=== PATIENT | male | born 1965 | race Caucasian/White ===

== ENCOUNTER 2016-06-03 19:29 | Inpatient (IN) | payer BC, OTHER ==
[2016-06-03] MEDS ORDERED: SODIUM CHLORIDE 0.9% 1,000 ML IV STA ×2 (20:06→22:39)
--- NOTE | 2016-06-03 20:08 | ED ---
General Adult HPI - General Source: patient, RN notes reviewed Mode of arrival: ambulatory Limitations: no limitations <Andres Cortés - Last Filed: 06/03/16 22:27> <Catarino Damian - Last Filed: 06/04/16 10:58> - General Chief complaint: Abdominal Pain Stated complaint: lower abdominal pain Time Seen by Provider: 06/03/16 20:01 - History of Present Illness Initial comments: Patient 50-year-old male who presents emergency room today with a chief complaint of right-sided abdominal pain that started yesterday. He describes a sharp constant pain located in the right lower quadrant. States worse with certain movements at times. Currently rates pain 9/10. Denies any other associated symptoms or complaints. States never had similar pain in the past. Patient denies any recent fever, chills, shortness of breath, chest pain, back pain, nausea or vomiting, numbness or tingling, dysuria or hematuria, constipation or diarrhea, headaches or visual changes, or any other complaints. (Andres Cortés) - Related Data Home Medications Medication Instructions Recorded Confirmed traMADol HCL [Ultram] 50 mg PO Q4HR PRN 06/03/16 06/04/16 Cyclobenzaprine [Flexeril] 10 mg PO TID PRN 06/04/16 06/04/16 Allergies Allergy/AdvReac Type Severity Reaction Status Date / Time No Known Allergies Allergy Verified 06/03/16 20:23 Review of Systems ROS Other: All systems not noted in ROS Statement are negative. <Andres Cortés - Last Filed: 06/03/16 22:27> ROS Other: All systems not noted in ROS Statement are negative. <Catarino Damian - Last Filed: 06/04/16 10:58> ROS Statement: Those systems with pertinent positive or pertinent negative responses have been documented in the HPI. Past Medical History Past Medical History: Cancer Additional Past Medical History / Comment(s): Skin cancer History of Any Multi-Drug Resistant Organisms: None Reported Past Surgical History: Tonsillectomy Additional Past Surgical History / Comment(s): Skin cancer removal left neck, wide excision Past Psychological History: No Psychological Hx Reported Smoking Status: Never smoker Past Alcohol Use History: None Reported Past Drug Use History: None Reported <Andres Cortés - Last Filed: 06/03/16 22:27> General Exam Limitations: no limitations <Arthur Cortésony - Last Filed: 06/03/16 22:27> <Catarino Damian - Last Filed: 06/04/16 10:58> - General Exam Comments Initial Comments: General: The patient is awake and alert, in no distress, and does not appear acutely ill. Eye: Pupils are equal, round and reactive to light, extra-ocular movements are intact. No nystagmus. There is normal conjunctiva bilaterally. No signs of icterus. Ears, nose, mouth and throat: There are moist mucous membranes and no oral lesions. Neck: The neck is supple, there is no tenderness or JVD. Cardiovascular: There is a regular rate and rhythm. No murmur, rub or gallop is appreciated. Respiratory: Lungs are clear to auscultation, respirations are non-labored, breath sounds are equal. No wheezes, stridor, rales, or rhonchi. Gastrointestinal: Normal appearance abdomen. Normal bowel sounds. Abdomen soft on palpation. Patient does have tenderness right lower quadrant. No rebound tenderness. No guarding. No CVA tenderness. Musculoskeletal: Normal ROM, no tenderness. Strength 5/5. Sensation intact. Pulses equal bilaterally 2+. Neurological: A&O x 3. CN II-XII intact, There are no obvious motor or sensory deficits. Coordination appears grossly intact. Speech is normal. Skin: Skin is warm and dry and no rashes or lesions are noted. Psychiatric: Cooperative, appropriate mood & affect, normal judgment. (Andres Cortés) Course <Andres Cortés - Last Filed: 06/03/16 22:27> <Catarino Damian - Last Filed: 06/04/16 10:58> Vital Signs 06/03/16 06/03/16 06/03/16 19:56 22:27 23:18 Temperature 98.8 F 98.0 F 98.0 F Pulse Rate 85 74 67 Respiratory 18 18 18 Rate Blood Pressure 134/85 129/79 105/58 O2 Sat by Pulse 97 96 100 Oximetry - Reevaluation(s) Reevaluation #1: 06/03/16 20:08 Is examined at this time does have tenderness right lower quadrant. Labs are currently pending. Patient declined pain medicine currently at this time. ( Andres Cortés) Medical Decision Making - Lab Data Result diagrams: 06/03/16 20:25 06/03/16 20:25 <Andres Cortés - Last Filed: 06/03/16 22:27> - Lab Data Result diagrams: 06/04/16 07:56 06/04/16 07:56 <Catarino Damian - Last Filed: 06/04/16 10:58> - Medical Decision Making Patient reexamined at this time shows no signs of distress. Patient's CAT scan reviewed and does show evidence of appendicitis. Also nodules seen bilateral lower lobes. Results were discussed with the patient. Case discussed with attending physician Dr. Damian who did discuss case with on-call surgeon who will admit the patient. Recommending starting Zosyn. Patient aware the plan states understanding. (Andres Cortés) I saw this patient in conjunction with the physician photography assistant. I performed independent history and physical exam. Agree with case management. (Catarino Damian) - Lab Data Lab Results 06/03/16 06/03/16 06/03/16 Range/Units 20:25 20:25 20:25 WBC 7.4 (3.8-10.6) k/uL RBC 4.91 (4.30-5.90) m/uL Hgb 15.3 (13.0-17.5) gm/dL Hct 44.4 (39.0-53.0) % MCV 90.5 (80.0-100.0) fL MCH 31.2 (25.0-35.0) pg MCHC 34.4 (31.0-37.0) g/dL RDW 12.6 (11.5-15.5) % Plt Count 181 (150-450) k/uL Neutrophils % 65 % Lymphocytes % 26 % Monocytes % 5 % Eosinophils % 1 % Basophils % 1 % Neutrophils # 4.8 (1.3-7.7) k/uL Lymphocytes # 1.9 (1.0-4.8) k/uL Monocytes # 0.4 (0-1.0) k/uL Eosinophils # 0.1 (0-0.7) k/uL Basophils # 0.0 (0-0.2) k/uL Sodium 142 (137-145) mmol/L Potassium 4.1 (3.5-5.1) mmol/L Chloride 105 (98-107) mmol/L Carbon Dioxide 24 (22-30) mmol/L Anion Gap 13 mmol/L BUN 16 (9-20) mg/dL Creatinine 0.92 (0.66-1.25) mg/dL Est GFR (MDRD) Af Amer >60 (>60 ml/min/1.73 sqM) Est GFR (MDRD) Non-Af >60 (>60 ml/min/1.73 sqM) Glucose 97 (74-99) mg/dL Plasma Lactic Acid Darien 1.1 (0.7-2.0) mmol/L Calcium 9.7 (8.4-10.2) mg/dL Total Bilirubin 0.7 (0.2-1.3) mg/dL AST 28 (17-59) U/L ALT 48 (21-72) U/L Alkaline Phosphatase 65 (38-126) U/L Total Protein 7.5 (6.3-8.2) g/dL Albumin 4.5 (3.5-5.0) g/dL Amylase 30 (30-110) U/L Lipase 86 (23-300) U/L Urine Color Urine Appearance (Clear) Urine pH (5.0-8.0) Ur Specific Onyx (1.001-1.035) Urine Protein (Negative) Urine Glucose (UA) (Negative) Urine Ketones (Negative) Urine Blood (Negative) Urine Nitrate (Negative) Urine Bilirubin (Negative) Urine Urobilinogen (<2.0) mg/dL Ur Leukocyte Esterase (Negative) 06/03/16 Range/Units 20:25 WBC (3.8-10.6) k/uL RBC (4.30-5.90) m/uL Hgb (13.0-17.5) gm/dL Hct (39.0-53.0) % MCV (80.0-100.0) fL MCH (25.0-35.0) pg MCHC (31.0-37.0) g/dL RDW (11.5-15.5) % Plt Count (150-450) k/uL Neutrophils % % Lymphocytes % % Monocytes % % Eosinophils % % Basophils % % Neutrophils # (1.3-7.7) k/uL Lymphocytes # (1.0-4.8) k/uL Monocytes # (0-1.0) k/uL Eosinophils # (0-0.7) k/uL Basophils # (0-0.2) k/uL Sodium (137-145) mmol/L Potassium (3.5-5.1) mmol/L Chloride (98-107) mmol/L Carbon Dioxide (22-30) mmol/L Anion Gap mmol/L BUN (9-20) mg/dL Creatinine (0.66-1.25) mg/dL Est GFR (MDRD) Af Amer (>60 ml/min/1.73 sqM) Est GFR (MDRD) Non-Af (>60 ml/min/1.73 sqM) Glucose (74-99) mg/dL Plasma Lactic Acid Darien (0.7-2.0) mmol/L Calcium (8.4-10.2) mg/dL Total Bilirubin (0.2-1.3) mg/dL AST (17-59) U/L ALT (21-72) U/L Alkaline Phosphatase (38-126) U/L Total Protein (6.3-8.2) g/dL Albumin (3.5-5.0) g/dL Amylase (30-110) U/L Lipase (23-300) U/L Urine Color Yellow Urine Appearance Clear (Clear) Urine pH 6.0 (5.0-8.0) Ur Specific Onyx 1.020 (1.001-1.035) Urine Protein Negative (Negative) Urine Glucose (UA) Negative (Negative) Urine Ketones Negative (Negative) Urine Blood Negative (Negative) Urine Nitrate Negative (Negative) Urine Bilirubin Negative (Negative) Urine Urobilinogen 2.0 (<2.0) mg/dL Ur Leukocyte Esterase Negative (Negative) Disposition Time of Disposition: 22:29 <Andres Cortés - Last Filed: 06/03/16 22:27> <Catarino Damian - Last Filed: 06/04/16 10:58> Clinical Impression: Acute appendicitis, Pulmonary nodule Disposition: ADMITTED IP TO THIS [facility] Condition: Good
[2016-06-03 20:38] LABS: Appearance,Urine Clear (Clear); Bilirubin,Urine Negative (Negative); Glucose,Urine (UA) Negative (Negative); Ketones,Urine Negative (Negative); Leukocyte Esterase,Urine Negative (Negative); Nitrite,Urine Negative (Negative); Protein,Urine Negative (Negative); UA Billing (MACRO vs. MICRO) CHEM
[2016-06-03 20:39] LABS: Basophils % (A) 1 %; CH 32.1; CHCM 35.6; Eosinophils # (A) 0.1 k/uL (0-0.7); Eosinophils % (A) 1 %; HCT 44.4 % (39.0-53.0); HDW 2.66; HGB 15.3 gm/dL (13.0-17.5); Luc # (Auto) 0.11; Luc % (Auto) 2; Lymphocytes # (A) 1.9 k/uL (1.0-4.8); Lymphocytes % (A) 26 %; MCH 31.2 pg (25.0-35.0); MCHC 34.4 g/dL (31.0-37.0); MCV 90.5 fL (80.0-100.0); Mean Platelet Volume 7.8; Monocytes # (A) 0.4 k/uL (0-1.0); Monocytes % (A) 5 %; Neutrophils # (A) 4.8 k/uL (1.3-7.7); Neutrophils % (A) 65 %; RBC 4.91 m/uL (4.30-5.90); RDW 12.6 % (11.5-15.5); WBC 7.4 k/uL (3.8-10.6); WBC (Perox) 7.44
[2016-06-03 20:49] LABS: ALT 48 U/L (21-72); AST 28 U/L (17-59); Alkaline Phosphatase 65 U/L (38-126); Amylase 30 U/L (30-110); Anion Gap 13 mmol/L; Blood Urea Nitrogen 16 mg/dL (9-20); Calcium 9.7 mg/dL (8.4-10.2); Carbon Dioxide 24 mmol/L (22-30); Chloride 105 mmol/L (98-107); Glucose 97 mg/dL (74-99); Non-African American GFR(MDRD) >60 (>60 ml/min/1.73 sqM); Potassium 4.1 mmol/L (3.5-5.1); Sodium 142 mmol/L (137-145); Total Bilirubin 0.7 mg/dL (0.2-1.3); Total Protein 7.5 g/dL (6.3-8.2)
--- NOTE | 2016-06-03 21:04 | XR ---
EXAMINATION TYPE: XR KUB DATE OF EXAM: 06/03/2016 8:52 PM COMPARISON: NONE HISTORY: Abdominal pain TECHNIQUE: 2 views FINDINGS: There is no sign of intestinal obstruction or pneumoperitoneum. Fecal pattern is normal. Th ere is slight blunting of costophrenic angles. There are no pathologic calcifications over the kidney s. There is no sign of a mass. IMPRESSION: Nonacute abdomen. Minimal pleural reaction at the lateral lung bases.
[2016-06-03] MEDS ORDERED: RX INFO: IV CONTRAST WAS GIVEN 1 EACH MISC MISCELLANE PRN (21:22)
--- NOTE | 2016-06-03 22:03 | CT ---
EXAMINATION TYPE: CT abdomen pelvis w con DATE OF EXAM: 06/03/2016 9:49 PM COMPARISON: 01/22/2014 HISTORY: Pt states of RLQ pain. CT DLP: 1245.9 mGycm Automated exposure control for dose reduction was used. TECHNIQUE: Helical acquisition of images was performed from the lung bases through the pelvis. CONTRAST: Performed without Oral Contrast and with IV Contrast, patient injected with 100 mL of Omnipaque 300. FINDINGS: Images through both lower lobes show bilateral pulmonary nodular densities. The largest measures 2 cm in the right lower lobe. There is no calcification. There is no pleural effusion. Heart appears enla rged. There is no pericardial effusion. There is a 1 cm cyst in the left lobe of the liver. Liver shows no evidence of a solid mass. Spleen a ppears normal. There is no pancreatic mass. Bile ducts are not dilated. There is no adrenal mass. The re is a 1.5 cm cortical cyst on the anterior left kidney. There is no hydronephrosis. There is no ret roperitoneal adenopathy. There is no ascites. There are numerous diverticula in the sigmoid colon. Ap pendix is slightly thickened and measures 12 mm. There is no evidence of a pelvic mass. Bladder diste nds smoothly. The bony structures are intact. IMPRESSION: APPENDIX IS SLIGHTLY THICKENED AND APPEARS INCREASED COMPARED TO OLD CT SCAN. THIS IS SUSPICIOUS FOR APPENDICITIS. THERE ARE NEW BILATERAL LOWER LOBE PULMONARY NODULAR DENSITIES. THE POSSIBILITY OF PULMONARY METASTA TIC DISEASE SHOULD BE CONSIDERED IN THIS PATIENT WITH A HISTORY OF MELANOMA. THERE ARE 2 APPROXIMATE 1.5 CM NODULES IN THE LEFT LOWER LOBE AND A 2 CM NODULE IN THE RIGHT LOWER LOBE. .
[2016-06-03] MEDS ORDERED: NALOXONE 0.4 MG/ML 1 ML VIAL IV PRN (22:30)
[2016-06-03] MEDS ORDERED: HYDROmorphone 1 MG/ML 1 ML SYRINGE IV PRN (22:35)
[2016-06-03] MEDS ORDERED: SODIUM CHLORIDE 0.9% 1,000 ML IV ONE (22:35)
[2016-06-03] MEDS ORDERED: ONDANSETRON 4 MG/2 ML VIAL IVP PRN ×2 (22:35→22:39)
[2016-06-03 23:45] VITALS: BMI 29.8
[2016-06-04] MEDS: HEPARIN SODIUM,PORCINE 5,000 UNIT/ML 1 ML VIAL SQ SCH ×5 (00:17→23:52)
[2016-06-04] MEDS: AMPICILLIN-SULBACTAM 1.5 GM in SODIUM CHLORIDE 0.9% 50 ML IVPB SCH ×5 (00:51→23:50)
[2016-06-04 08:27] LABS: CH 31.9; CHCM 34.4; HCT 44.8 % (39.0-53.0); HDW 2.63; HGB 14.9 gm/dL (13.0-17.5); MCHC 33.3 g/dL (31.0-37.0); MCV 93.2 fL (80.0-100.0); Mean Platelet Volume 7.1; RDW 12.7 % (11.5-15.5); WBC 3.9 k/uL (3.8-10.6)
[2016-06-04 08:37] LABS: ALT 55 U/L (21-72); AST 25 U/L (17-59); Alkaline Phosphatase 68 U/L (38-126); Anion Gap 11 mmol/L; Blood Urea Nitrogen 15 mg/dL (9-20); Calcium 9.3 mg/dL (8.4-10.2); Carbon Dioxide 25 mmol/L (22-30); Chloride 106 mmol/L (98-107); Glucose 95 mg/dL (74-99); Non-African American GFR(MDRD) >60 (>60 ml/min/1.73 sqM); Potassium 4.2 mmol/L (3.5-5.1); Sodium 142 mmol/L (137-145); Total Bilirubin 1.1 mg/dL (0.2-1.3); Total Protein 7.1 g/dL (6.3-8.2)
[2016-06-04] MEDS ORDERED: IV FLUID CONTINUATION 1,000 ML IV ONE (08:45)
[2016-06-04] MEDS ORDERED: LACTATED RINGERS 1,000 ML IV ONE ×2 (08:45→12:54)
[2016-06-04] MEDS ORDERED: LIDOCAINE 1% 20 ML VIAL (10MG/ML) FOR IV START INTRADERMA ONE (08:46)
[2016-06-04] MEDS ORDERED: DEXAMETHASONE SOD PHOSPHATE 10 MG/ML 1 ML VIAL IV ONE (08:51)
[2016-06-04] MEDS ORDERED: BUPIVACAIN-EPI 0.25%-1:200,000 30 ML VIAL SQ ONE ×2 (10:03→10:26)
[2016-06-04] MEDS ORDERED: LIDOCAINE 1% INJ 10MG/ML (20 ML MDV) ONE (12:08)
[2016-06-04] MEDS ORDERED: NEOSTIGMINE 1 MG/ML 10 ML VIAL ONE (12:08)
[2016-06-04] MEDS ORDERED: HYDROmorphone (PF) 1 MG/ML ONE (12:08)
[2016-06-04] MEDS ORDERED: MIDAZOLAM 2 MG/2 ML VIAL ONE (12:08)
[2016-06-04] MEDS ORDERED: GLYCOPYRROLATE 0.2 MG/ML 2 ML VIAL ONE (12:08)
[2016-06-04] MEDS ORDERED: fentaNYL (PF) 50 MCG/ML 2 ML AMP ONE (12:08)
[2016-06-04] MEDS ORDERED: ROCURONIUM BROMIDE 10 MG/ML 10 ML VIAL IV ONE (12:08)
[2016-06-04] MEDS ORDERED: PROPOFOL 10 MG/ML 20 ML VIAL IV ONE (12:08)
[2016-06-04] MEDS ORDERED: SUCCINYLCHOLINE CHLORIDE 100 MG/5 ML SYR IV ONE (12:08)
--- NOTE | 2016-06-04 12:17 | P.GSHP ---
History of Present Illness H&P Date: 06/04/16 Chief Complaint: Right abdominal pain 50 years old male presents with right lower quadrant pain of 3 days duration. No fever, chills or diarrhea. No change in bowel habits. No nausea or vomiting. Past history of neck melanoma status post excision at [facility] in 2014. No blood in stool. - Review of Systems Comment: Constitutional: Denies fever, weight loss or loss of appetite HEENT: No difficulty in vision or hearing. Denies dysphagia. Cardiovascular:. Denies chest pain, palpitations, dizziness, shortness of breath. Respiratory: Recent upper respiratory tract infection with dry cough. Long- standing asthma well controlled with rescue inhalers. Gastrointestinal: No recent change in bowel habits, no abdominal pain, no nausea or vomiting. Denies reflux symptoms and no postprandial right upper quadrant pain. Genitourinary: No urinary incontinence, hematuria or dysuria Neurologic: No seizures, denies weakness in upper or lower extremities Musculoskeletal: Occasional left knee pain. Psychiatry: No history of depression, no suicidal ideation, no anxiety or psychosis Past Medical History Past Medical History: Cancer Additional Past Medical History / Comment(s): Skin cancer 01/2015 History of Any Multi-Drug Resistant Organisms: None Reported Past Surgical History: Tonsillectomy Additional Past Surgical History / Comment(s): Skin cancer removal left neck, wide excision, cyst removal 1982, from [facility] Past Psychological History: No Psychological Hx Reported Smoking Status: Never smoker Past Alcohol Use History: None Reported Past Drug Use History: None Reported - Past Family History Father Family Medical History: Chest Pain / Angina, Congestive Heart Failure (CHF), CVA /TIA Additional Family Medical History / Comment(s): Mother Family Medical History: Congestive Heart Failure (CHF), Diabetes Mellitus Additional Family Medical History / Comment(s): Medications and Allergies Home Medications Medication Instructions Recorded Confirmed Type traMADol HCL [Ultram] 50 mg PO Q4HR PRN 06/03/16 06/04/16 History Cyclobenzaprine [Flexeril] 10 mg PO TID PRN 06/04/16 06/04/16 History Allergies Allergy/AdvReac Type Severity Reaction Status Date / Time No Known Allergies Allergy Verified 06/03/16 20:23 Surgical - Exam Vital Signs Temp Pulse Resp BP Pulse Ox 98.8 F 85 18 134/85 97 06/03/16 19:56 06/03/16 19:56 06/03/16 19:56 06/03/16 19:56 06/03/16 19:56 General: Patient is alert and oriented to time, place and person and cooperative with exam. He is not in acute distress. HEENT: No pallor, no icterus, no thyroid enlargement, no cervical lymphadenopathy. Chest: Bilateral equal breath sounds present. No wheezes, no crackles. Cardiovascular: Regular rate and rhythm. Abdomen: RLQ localized tenderness. No diffuse peritonitis Integumentary: Bilateral lower extremity chronic venous dermatitis. No active ulcers or discharge. Neurologic: Cranial nerves II-XII intact. Strength upper and lower extremities 5/5. No focal neurologic deficits. Gait is normal. Psychiatric: No anxiety or psychosis. No suicidal thoughts. Results - Labs 06/04/16 07:56 06/04/16 07:56 Diabetes panel 06/04/16 Range/Units 07:56 Sodium 142 (137-145) mmol/L Potassium 4.2 (3.5-5.1) mmol/L Chloride 106 (98-107) mmol/L Carbon Dioxide 25 (22-30) mmol/L BUN 15 (9-20) mg/dL Creatinine 0.96 (0.66-1.25) mg/dL Glucose 95 (74-99) mg/dL Calcium 9.3 (8.4-10.2) mg/dL AST 25 (17-59) U/L ALT 55 (21-72) U/L Alkaline Phosphatase 68 (38-126) U/L Total Protein 7.1 (6.3-8.2) g/dL Albumin 4.3 (3.5-5.0) g/dL Calcium panel 06/04/16 Range/Units 07:56 Calcium 9.3 (8.4-10.2) mg/dL Albumin 4.3 (3.5-5.0) g/dL Pituitary panel 06/04/16 Range/Units 07:56 Sodium 142 (137-145) mmol/L Potassium 4.2 (3.5-5.1) mmol/L Chloride 106 (98-107) mmol/L Carbon Dioxide 25 (22-30) mmol/L BUN 15 (9-20) mg/dL Creatinine 0.96 (0.66-1.25) mg/dL Glucose 95 (74-99) mg/dL Calcium 9.3 (8.4-10.2) mg/dL Adrenal panel 06/04/16 Range/Units 07:56 Sodium 142 (137-145) mmol/L Potassium 4.2 (3.5-5.1) mmol/L Chloride 106 (98-107) mmol/L Carbon Dioxide 25 (22-30) mmol/L BUN 15 (9-20) mg/dL Creatinine 0.96 (0.66-1.25) mg/dL Glucose 95 (74-99) mg/dL Calcium 9.3 (8.4-10.2) mg/dL Total Bilirubin 1.1 (0.2-1.3) mg/dL AST 25 (17-59) U/L ALT 55 (21-72) U/L Alkaline Phosphatase 68 (38-126) U/L Total Protein 7.1 (6.3-8.2) g/dL Albumin 4.3 (3.5-5.0) g/dL - Imaging CT scan - abdomen: other (Computed tomography scan of the abdomen and pelvis was visualized. Dilated appendix and mild fat stranding suggestive of early appendicitis) Assessment and Plan (1) History of melanoma Status: Acute (2) Acute appendicitis Status: Acute (3) Pulmonary nodule Status: Acute Plan: 1. Acute appendicitis 2. Informed consent obtained from the patient after explaining the risks, benefits and potential complications and he elected to undergo laparoscopic appendectomy possible open. The risks, benefits and potential complications including bleeding and infection were explained and patient elected to undergo the procedure. 3. Unasyn 3 g IV piggyback every 6 hours 4. Heparin 5000 units subcu injection every 8 hours for DVT prophylaxis 5. Bilateral SCDs 6. Oncology consult regarding pulmonary nodules and prior history of melanoma
[2016-06-04] MEDS ORDERED: KETOROLAC 30 MG/ML 1 ML VIAL IVP ONE (13:59)
--- NOTE | 2016-06-04 15:13 | P.OP ---
Date of Procedure: 06/04/16 Preoperative Diagnosis: Acute appendicitis History of neck melanoma status post surgery Postoperative Diagnosis: Acute appendicitis Procedure(s) Performed: Laparoscopic appendectomy Implants: NA Anesthesia: GETA, local Surgeon: Jaylene Cuevas Estimated Blood Loss (ml): 25 Pathology: other Condition: other (ASA2) Disposition: PACU Indications for Procedure: 50 years old male presents with right lower quadrant pain of 3 day duration. Computed tomography scan suggestive of early appendicitis. Informed consent obtained and patient elected to undergo laparoscopic appendectomy possible open. The risks, benefits and potential competitions explained and patient returned with the surgery. Operative Findings: Acute appendicitis. Retrocecal location of the appendix. Bilateral indirect inguinal hernia left larger than right. Description of Procedure: The patient was brought to the operating room and placed in supine position with left arm tucked and a footboard was placed. General anesthesia with endotracheal intubation was performed as per anesthesia team. A Gonzalez catheter was inserted under sterile aseptic precautions. Chlorhexidine was used to prep the abdomen followed by application of sterile drapes. A timeout was performed to verify correct patient and correct procedure. Patient was confirmed to receive perioperative IV antibiotics, subcutaneous heparin for VTE prophylaxis and bilateral SCDs were placed. A 5 mm skin incision was made in the left anterior axillary line and a Veress needle was inserted into the peritoneal cavity and CO2 insufflated to a pressure of 15 mmHg. A 5 mm Optiview trocar was loaded on a 5 mm 30 laparoscope and peritoneal cavity was entered under direct vision. An additional 5 mm trocar was placed in the suprapubic location in midline and a 12 mm trocar in the supraumbilical location. Patient was placed in Trendelenburg with right side up. The appendix was identified. It was retrocecal in location. The ascending colon was mobilized along the white line of Toldt along the right colon. The appendix was grasped using a laparoscopic Abimael instrument. A suction irrigation device was used to gently dissecting appendix from the surrounding tissue. All the fibrinous exudates were removed. A window was made in the mesoappendix close to the cecal base using a [place] dissector. Laparoscopic Ligasure was used to divide the mesoappendix. No bleeding noted from the mesoappendiceal stump. The appendix was divided at its base, at the confluence of three tenia using Ethicon stapler 45 blue load. The staple line was intact without evidence of bleeding. The appendix was placed in an endocatch bag and was retrieved through the supraumbilical port site. All the trocar sites were examined and no evidence of bleeding. Excess fluid was suctioned out. The 12 mm trocar site was closed using three transfascial sutures of 0 Vicryl which were placed using a eVenues device. Local anesthetic was infiltrated along all the ports sites. The sponge, instrument and needle count were correct x2. CO2 gas was evacuated and trocars were removed. 4-0 Monocryl was used to close the skin incisions followed by Dermabond skin glue. Gonzalez catheter was discontinued. Patient tolerated the procedure well and was taken to post anesthesia care unit in stable condition.
[2016-06-04] MEDS: traMADol 50 MG TAB PO SCH ×2 (16:00→23:52)
[2016-06-04 22:41] VITALS: RESP 16
[2016-06-05] MEDS: AMPICILLIN-SULBACTAM 1.5 GM in SODIUM CHLORIDE 0.9% 50 ML IVPB SCH (06:00)
[2016-06-05] MEDS: HEPARIN SODIUM,PORCINE 5,000 UNIT/ML 1 ML VIAL SQ SCH (07:30)
[2016-06-05] MEDS: traMADol 50 MG TAB PO SCH (07:30)
[2016-06-05 07:55] VITALS: TEMP 97.8
[2016-06-05 08:12] VITALS: BP 105/55; PULSE 57
[2016-06-05 09:17] LABS: CH 31.9; CHCM 33.9; HCT 40.2 % (39.0-53.0); HDW 2.59; HGB 13.4 gm/dL (13.0-17.5); MCH 31.6 pg (25.0-35.0); MCHC 33.4 g/dL (31.0-37.0); MCV 94.6 fL (80.0-100.0); Mean Platelet Volume 7.1; RBC 4.25 m/uL (4.30-5.90); RDW 12.7 % (11.5-15.5); WBC 6.4 k/uL (3.8-10.6); WBC (Perox) 7.79
[2016-06-05 09:42] LABS: ALT 45 U/L (21-72); AST 21 U/L (17-59); Alkaline Phosphatase 53 U/L (38-126); Anion Gap 9 mmol/L; Blood Urea Nitrogen 17 mg/dL (9-20); Calcium 8.8 mg/dL (8.4-10.2); Carbon Dioxide 24 mmol/L (22-30); Chloride 106 mmol/L (98-107); Glucose 118 mg/dL (74-99); Non-African American GFR(MDRD) >60 (>60 ml/min/1.73 sqM); Potassium 4.2 mmol/L (3.5-5.1); Sodium 139 mmol/L (137-145); Total Bilirubin 0.8 mg/dL (0.2-1.3); Total Protein 6.4 g/dL (6.3-8.2)
[2016-06-05 10:27] LABS: Add Differential Manual Differential
[2016-06-05 10:32] LABS: Nucleated Red Blood Cells 0 /100 WBC (0-0); Total Cells Counted 200
[2016-06-05 10:35] LABS: RBC Morphology Normal
[2016-06-05] MEDS ORDERED: RX INFO: IV CONTRAST WAS GIVEN 1 EACH MISC MISCELLANE PRN (11:44)
--- NOTE | 2016-06-05 13:10 | CT ---
EXAMINATION TYPE: CT chest w con DATE OF EXAM: 06/05/2016 12:50 PM COMPARISON: Previous study dated 01/22/2014. HISTORY: Lung Nodule CT DLP: 410.1 mGycm Automated exposure control for dose reduction was used. CONTRAST: CT scan of the chest is performed with IV Contrast, patient injected with 100 mL of Omnipaque 300. FINDINGS: There is an 8 mm noncalcified nodule in the anterior segment of the right upper lobe best seen on image 15. There are multiple other nodules throughout both lungs. The largest on the right me asures 17 mm. The largest on the left measures 15 mm. There is atelectatic change present at both jen g bases. There is no significant axillary, mediastinal or hilar adenopathy. There is no pleural or pericardial fluid. Within the abdomen, there is fatty infiltration of the liver. Visualized upper abdominal structures a re otherwise normal. There is mild hypertrophic spondylosis within the spine. No destructive lesion is seen. IMPRESSION: 1. Multiple pulmonary nodules consistent with metastases. 2. Fatty infiltration of the liver. 3. Mild degenerative changes within the spine.
--- NOTE | 2016-06-05 13:44 | P.DS ---
Providers Date of admission: 06/03/16 22:39 Expected date of discharge: 06/05/16 Attending physician: Jaylene Rainey Consults: 06/04/16 12:18 Consult Physician Routine Consulting Provider: Flaquito Zamudio Consult Reason/Comments: H/o melanoma. Incidental lung nodules Do you want consulting provider notified?: Yes Primary care physician: Kwame Shields [facility] Course: 50-year-old male who presented on the day of admission to the emergency with a chief complaint of developing right-sided abdominal pain. He stated it started the day before. He described it as a sharp constant pain that was located in the right lower quadrant. He stated it seemed to get worse if with movement. Stated the pain was intense. Subsequently the patient was seen in the emergency room for the above-mentioned symptoms patient denied any fever chills diarrhea constipation or change in bowel habits in the emergency room patient's CAT scan of the abdomen pelvis showed evidence of appendicitis. Surgical consultation was obtained. Patient was started on IV Zosyn. Patient was taken to surgery on June 14 underwent a laparoscopic appendectomy for acute appendicitis. Patient's only significant past medical history is neck melanoma status post surgery. Patient did have a CAT scan of the chest recommended by Dr. Zamudio hematology oncology. CAT scan of the chest was performed with IV contrast showed multiple pulmonary nodules consistent with metastasis fatty infiltration of the liver hematology oncology indicated they would follow the patient up in the outpatient setting Impression discharge diagnosis Present on admission right upper quadrant pain likely due to acute appendicitis Status post lap appendectomy done on June 05 History of neck myeloma status post surgery Chest x-ray multiple pulmonary nodules consistent with metastasis The above dictated assessment and findings were discussed with Dr. rainey Impression and the plan of care have been dictated as directed. Mariah Carballo nurse practitioner acting as a scribe for dr rainey Patient Condition at Discharge: Good Plan - Discharge Summary Discharge Medication List traMADol HCL [Ultram] 50 mg PO Q4HR PRN 06/03/16 [History] Cyclobenzaprine [Flexeril] 10 mg PO TID PRN 06/04/16 [History] Follow up Appointment(s)/Referral(s): Flaquito Zamudio MD [STAFF PHYSICIAN] - 06/09/16 2:15 pm Jaylene Rainey MD [STAFF PHYSICIAN] [facility] - 1-2 days Patient Instructions/Handouts: Laparoscopic Appendectomy (DC) Activity/Diet/Wound Care/Special Instructions: OK to shower . No soaking bath. No heavy lifting more than 10 lbs for 6 weeks post surgery. No driving while taking narcotics for pain. May use ice packs for local pain relief Take Motrin 600 mg po TID after meals if pain is not controlled Use incentive spireometry 10 times an hour while awake Discharge Disposition: HOME SELF-CARE
--- NOTE | 2016-06-05 16:32 | P.CONS ---
History of Present Illness - Reason for Consult Consult date: 06/05/16 lung nodule, incidential finding, Hx melanoma Requesting physician: Jaylene Cuevas - Chief Complaint RLQ pain - History of Present Illness Mr. Hernandez is a pleasant male pt admitted for appendicitis and Surgical intervention. Incidentally on imaging a 2 cm RLL lung nodule was identified. Pt has a history of melanoma on his left cheek. He had this mole on his left cheek since at least [id number]. In late summer 2013 he noted change in its shape and size, it was itchy. Around the beginning of 12/07 he also developed a painless lump in the upper left neck, anterior and inferior to his left ear. He was seen by Dr. Jara and had an excisional biopsy of the mole and FNA of the lump on 12/26/13. The mole did not show any definite evidence of malignancy but, the FNA was positive for melanoma cells. CT neck/C/A/P was performed revealing a 1.6 x 1.4 x 1.2 cm enhancing mass in the left parotid, no other site of metastases noted. He was referred to the [facility] Dr. Berry and had a wide excision of the original lesion area, left parotid excision and left radical neck node dissection. A 2.2 cm intra parotid node was positive for melanoma with spindle cell features. No other tran involvement was noted. Based on N1 ( stage III) disease, adjuvant therapy was recommended. He had 3 treatments with interferon and stopped to due to intolerance (back pain) and did not follow up. Pt denies, fevers, sweats, unintentional wt. loss, dysphagia, heartburn, indigestion, chst pain, SOB, cough, hemoptysis, pleuritic pain, no changes in bowel or bladder habits, denies lymph node swellings, his RLQ had only been hurting for about 3 days, prior to this he felt in his normal state of health, he works, lives alone. He is not current on age related cancer screenings. Review of Systems All systems: negative Constitutional: Reports as per HPI Past Medical History Past Medical History: Cancer Additional Past Medical History / Comment(s): melanoma 01/2014 History of Any Multi-Drug Resistant Organisms: None Reported Past Surgical History: Tonsillectomy Additional Past Surgical History / Comment(s): Skin cancer removal left neck, wide excision, cyst removal 1982, from [facility] Past Psychological History: No Psychological Hx Reported Smoking Status: Never smoker Past Alcohol Use History: None Reported Past Drug Use History: None Reported - Past Family History Father Family Medical History: Chest Pain / Angina, Congestive Heart Failure (CHF), CVA /TIA Additional Family Medical History / Comment(s): Mother Family Medical History: Congestive Heart Failure (CHF), Diabetes Mellitus Additional Family Medical History / Comment(s): Medications and Allergies Home Medications Medication Instructions Recorded Confirmed Type traMADol HCL [Ultram] 50 mg PO Q4HR PRN 06/03/16 06/04/16 History Cyclobenzaprine [Flexeril] 10 mg PO TID PRN 06/04/16 06/04/16 History Allergies Allergy/AdvReac Type Severity Reaction Status Date / Time No Known Allergies Allergy Verified 06/03/16 20:23 Physical Exam Vitals: Vital Signs Temp Pulse Pulse Resp BP Pulse Ox 06/05/16 08:11 57 L 105/55 06/05/16 07:00 97.8 F 49 L 16 88/49 95 06/05/16 00:00 99 16 06/04/16 22:39 96.6 F L 99 16 127/87 94 L 06/04/16 16:00 97.6 F 85 14 93/52 95 06/04/16 15:00 98 F 79 14 115/64 93 L 06/04/16 14:31 76 18 125/62 94 L 06/04/16 14:15 73 18 122/61 99 06/04/16 14:00 77 20 132/68 100 06/04/16 13:40 98.2 F 89 24 121/75 95 Intake and Output 06/04/16 06/05/16 06/05/16 22:59 06:59 14:59 Intake Total 4050 1100 Output Total 230 Balance 4050 870 Intake: IV 1250 1000 Sodium Chloride 0.9% 1, 1250 1000 000 ml @ 125 mls/hr IV . Q8H STA Rx#:[id number] Intake, IV Titration 100 Amount Ampicillin-Sulbactam 1.5 100 gm In Sodium Chloride 0.9 % 50 ml @ 100 mls/hr IVPB Q6H FRANK Rx#:[id number] Oral 2800 Output: Urine 230 Other: Voiding Method Toilet Toilet Toilet Urinal Urinal Urinal # Voids 2 0 Weight 99.79 kg - Constitutional General appearance: average body habitus, cooperative, no acute distress - EENT Eyes: anicteric sclerae, EOMI, PERRLA, normal appearance ENT: hearing grossly normal, normal oropharynx - Neck Neck: no lymphadenopathy - Respiratory Respiratory: bilateral: CTA - Cardiovascular Rhythm: regular Heart sounds: normal: S1, S2 Abnormal Heart Sounds: no systolic murmur, no diastolic murmur, no rub, no S3 Gallop, no S4 Gallop, no click, no other leg Peripheral Edema: bilateral: None - Gastrointestinal General gastrointestinal: no absent bowel sounds, no decreased bowel sounds, no distended, no hepatomegaly, no hyperactive bowel sounds, normal bowel sounds, no organomegaly, no rigid, no scaphoid, soft, no splenomegaly, no tenderness, no umbilical hernia, no ventral hernia Localized gastrointestinal: tender: RLQ - Integumentary Integumentary: normal - Neurologic Neurologic: CNII-XII intact - Musculoskeletal Musculoskeletal: strength equal bilaterally - Psychiatric Psychiatric: A&O x's 3, appropriate affect, intact judgment & insight Results CBC & Chem 7: 06/05/16 08:48 06/05/16 08:48 Labs: Abnormal Lab Results - Last 24 Hours (Table) 06/05/16 06/05/16 Range/Units 08:48 08:48 RBC 4.25 L (4.30-5.90) m/uL Glucose 118 H (74-99) mg/dL CT scan - abdomen: report reviewed CT scan - pelvis: report reviewed Assessment and Plan (1) History of melanoma Narrative/Plan: Did discuss with pt concerns about this lung nodule, especially since he did not complete therapy for melanoma. Pt states he wants to go home today. He did get the CT chest that Dr. Zamudio requested and he does have follow up appt sched for next Wednesday for results. Pt refused offer of sched biopsy, Dr. Zamudio will order further work up based on findings. All pt questions answered to the best of my ability. Status: Acute
== END 2016-06-05 13:45 | disposition home or self-care (01) | DRG 343 ==
LOC: EC 19:29 → 5ONC 22:39
PROVIDERS: ADMIT Surgery; ATTEND Surgery
PROC: 0DTJ4ZZ Resection of Appendix, Percutaneous Endoscopic Approach (ICD-10-PCS; principal; 2016-06-04 09:30)
DX: K35.80 Unspecified acute appendicitis (principal); K76.0 Fatty (change of) liver, not elsewhere classified; R91.8 Other nonspecific abnormal finding of lung field; K40.20 Bilateral inguinal hernia, without obstruction or gangrene, not specified as recurrent; Z85.820 Personal history of malignant melanoma of skin; Z79.899 Other long term (current) drug therapy; Z82.49 Family history of ischemic heart disease and other diseases of the circulatory system
CPT/HCPCS: 36415; 71260; 74000; 74177; 80053; 81003; 82150; 83605; 83690; 85025; 85027; 88304; 96360; 99285

== ENCOUNTER → 2016-07-18 | Outpatient (CLI) | payer OTHER ==
--- NOTE | 2016-07-20 12:30 | PE ---
Nuclear medicine PET/CT HISTORY: Melanoma Patient received 14.8 mCi F-18 FDG intravenously delayed scanning performed of the whole body. Locali zation and attenuation correction CT scan was performed. Exam correlated to CT chest 05 June 2016 , CT abdomen pelvis July 2016 Neck and chest: Multiple pulmonary nodules are present, these are seen bilaterally. Soft tissue nodul es are present bilaterally as noted on patient's chest CT. The largest are present within the superio r segment of the right lower lobe measuring approximately 2.2 cm each and have grown slightly in the interval as previously noted, SUV 7-8, largest in the left lower lobe is estimated the proximal 4-5, smaller nodules in the right middle lobe, left upper lobe SUV is approximately 3. Suspect a left axil jacobo node measuring 2 cm, SUV 7 Abdomen pelvis: Within the right gluteal soft tissues medial aspect there is a soft tissue mass measu ring 3.6 cm, SUV 10 Osseous structures within normal limits. Lower extremities thought to be normal. IMPRESSION: Metastatic disease as described above the soft tissues and lungs.
== END | disposition home or self-care (01) ==
LOC: RADPETMAIN 13:14
PROVIDERS: ATTEND Internal Medicine Hematology & Oncology
DX: C78.00 Secondary malignant neoplasm of unspecified lung (principal); C79.89 Secondary malignant neoplasm of other specified sites; C43.9 Malignant melanoma of skin, unspecified
CPT/HCPCS: 78815; A9552

== ENCOUNTER 2016-11-05 09:32 | Emergency (ER) | payer OTHER ==
[2016-11-05] MEDS ORDERED: ONDANSETRON 4 MG/2 ML VIAL IVP STA (10:21)
[2016-11-05] MEDS ORDERED: SODIUM CHLORIDE 0.9% 1,000 ML IV ONE ×2 (10:21→13:05)
--- NOTE | 2016-11-05 10:35 | ED ---
General Adult HPI - General Chief complaint: Recheck/Abnormal Lab/Rx Stated complaint: no appetite/poss dehydration Time Seen by Provider: 11/05/16 10:02 Source: patient Mode of arrival: wheelchair Limitations: no limitations - History of Present Illness Initial comments: Patient is a 51-year-old male with past medical history significant for metastatic melanoma for which he is undergoing chemotherapy at the [facility]. Patient reports that he has received 2 doses of chemotherapy the most recent was 20 days ago when he is scheduled to see his oncologist for repeat dose tomorrow. Patient reports that since obtaining his neck at dose of chemotherapy he is dealing with a daily headache and over the past 3-4 days has developed nausea, generalized malaise and fatigue. He reports that because of this he has had no appetite and has not been able to eat or drink much. She does report that he was able to take himself to the [facility] on Wednesday for repeat head CT and MRI. However he does not obtain the results from this. Patient reports he called his oncologist this morning to discuss with him his current systems was advised to go to the nearest hospital for further evaluation and possible IV fluid rehydration. Patient denies any subjective fevers, chills, vomiting and abdominal pain, chest pain or shortness of breath. He does report he had a couple episodes of diarrhea immediately after his last chemotherapy however that has resolved and he has not had any a past 3-4 days. He reports a daily headache that has been constant for nearly 3 weeks with minimal improvement with Motrin. He can identify any other exacerbating or relieving factors to the headache. - Related Data Home Medications Medication Instructions Recorded Confirmed Dicyclomine [Bentyl] 10 mg PO BID PRN 11/05/16 11/05/16 Ondansetron HCl [Zofran] 4 mg PO Q8H PRN 11/05/16 11/05/16 Prochlorperazine [Compazine] 10 mg PO Q6H PRN 11/05/16 11/05/16 Ranitidine HCl [Zantac] 150 mg PO BID 11/05/16 11/05/16 Triamcinolone 0.1% Cream [Kenalog] 1 applicatio TOPICAL BID 11/05/16 11/05/16 Allergies Allergy/AdvReac Type Severity Reaction Status Date / Time No Known Allergies Allergy Verified 11/05/16 10:03 Review of Systems ROS Statement: Those systems with pertinent positive or pertinent negative responses have been documented in the HPI. ROS Other: All systems not noted in ROS Statement are negative. Constitutional: Reports: chills, weakness Eyes: Denies: vision change ENT: Denies: throat pain Respiratory: Denies: cough, dyspnea Cardiovascular: Denies: chest pain, palpitations Endocrine: Reports: fatigue Gastrointestinal: Reports: nausea. Denies: abdominal pain, vomiting Genitourinary: Denies: dysuria Musculoskeletal: Denies: back pain Skin: Denies: rash, lesions Neurological: Reports: headache. 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/2014 mets to brain History of Any Multi-Drug Resistant Organisms: None Reported Past Surgical History: Tonsillectomy Additional Past Surgical History / Comment(s): Skin cancer removal left neck, wide excision, cyst removal 1982, from [facility] Past Psychological History: No Psychological Hx Reported Smoking Status: Never smoker Past Alcohol Use History: None Reported Past Drug Use History: None Reported - Past Family History Father Family Medical History: Chest Pain / Angina, Congestive Heart Failure (CHF), CVA /TIA Additional Family Medical History / Comment(s): Mother Family Medical History: Congestive Heart Failure (CHF), Diabetes Mellitus Additional Family Medical History / Comment(s): General Exam Limitations: no limitations General appearance: alert Head exam: Present: atraumatic, normocephalic, normal inspection Eye exam: Present: PERRL ENT exam: Present: mucous membranes dry Neck exam: Present: full ROM. Absent: tenderness, meningismus Respiratory exam: Present: normal lung sounds bilaterally Cardiovascular Exam: Present: regular rate, normal rhythm, normal heart sounds. Absent: bradycardia, tachycardia, irregular rhythm GI/Abdominal exam: Present: soft, normal bowel sounds. Absent: distended, tenderness, guarding, rebound, rigid Rectal exam: Present: deferred Extremities exam: Present: normal inspection, full ROM, normal capillary refill. Absent: tenderness, pedal edema, joint swelling, calf tenderness Neurological exam: Present: alert, oriented X3, CN II-XII intact Psychiatric exam: Present: normal affect, normal mood Skin exam: Present: warm, dry, intact, normal color. Absent: rash Course Vital Signs 11/05/16 11/05/16 11/05/16 09:39 10:34 12:00 Temperature 98.4 F 101.2 F H 99.5 F Pulse Rate 100 92 103 H Respiratory 20 16 18 Rate Blood Pressure 103/72 99/55 108/70 O2 Sat by Pulse 98 96 98 Oximetry 11/05/16 11/05/16 11/05/16 12:46 13:56 14:54 Temperature 101.0 F H 99.5 F 99.1 F Pulse Rate 94 85 83 Respiratory 19 17 18 Rate Blood Pressure 100/59 98/54 95/57 O2 Sat by Pulse 94 L 96 96 Oximetry 11/05/16 11/05/16 15:32 16:20 Temperature 99.5 F 99.8 F H Pulse Rate 92 87 Respiratory 18 18 Rate Blood Pressure 102/69 104/64 O2 Sat by Pulse 96 95 Oximetry - Reevaluation(s) Reevaluation #1: Patient reevaluated, reports feeling slightly better after IV fluids. Patient reports he now feels he has an appetite and is asking for ice chips and juice. Patient was given a cup of ice, 2 boxes of apple juice and some Jell-O. 11/05/16 11:37 Reevaluation #2: Patient was updated on conversation with his oncologist. Patient has been able to tolerate some water and Jell-O. He was given an apple juice. Patient agreeable to waiting for further recommendations from oncology. 11/05/16 13:14 Medical Decision Making - Medical Decision Making Patient was seen and examined, history is obtained from the patient Vital signs reveal no Sirs criteria, however blood pressure is mildly low Labs and IV fluids were ordered Patient was given Zofran for antiemetics Patient was reevaluated and noted to feel hot to the touch, repeat oral temperature was 101, Tylenol was ordered Labs with no significant abnormalities Urinalysis with no evidence of UTI 1:05 PM Patient care was discussed with the patient's oncologist at [facility], Dr. Trujillo, he states that the treatment the patient is on can cause pituitary abnormalities which cause a frontal headache and can also cause adrenal hypoplasia and resulting in low cortisol levels. He requested TSH and cortisol level be drawn. He recommends continued treatment with IV fluids and observation. He is currently unavailable to review the patient's images that were obtained on Wednesday, he states that he will be able to view them within the next hour and callback for further updates and recommend imitations. The patient was updated on the plan. TSH, cortisol levels were ordered 2:03 PM Patient care was again discussed with Dr. Trujillo at [facility]. He states he evaluated the patient's CT and MRI which revealed that the patient's metastatic lesions are decreasing in size. However he does have concern for pituitary hemorrhage which can result in renal insufficiency. He recommends the patient be treated with 125 mg of IV Solu-Medrol today and discharged home with a prescription for 60 mg of by mouth prednisone daily. He has an appointment to see the patient tomorrow and feels the patient is stable for discharge home until that time. Patient was updated on plan and was agreeable for plan for IV treatment here and discharged with prednisone. Patient reports he does feel that he'll be able to make it to his follow-up appointment with Dr. Trujillo tomorrow. TSH was markedly low, patient was advised to discuss this with Dr. Trujillo tomorrow She was given a copy of his labs to discuss with Dr. Trujillo 8:43 PM Upon review chart I realized that patient was discharged home without a prescription for prednisone, I called the patient's cell phone and left a message advising that the prednisone prescription had been called into his pharmacy [facility] on . He is to rock picker this prescription in the morning and take his first dose tomorrow. - Lab Data Result diagrams: 11/05/16 10:30 11/05/16 10:30 Lab Results 11/05/16 11/05/16 11/05/16 Range/Units 10:30 10:30 10:30 WBC 5.7 (3.8-10.6) k/uL RBC 4.99 (4.30-5.90) m/uL Hgb 16.0 (13.0-17.5) gm/dL Hct 44.7 (39.0-53.0) % MCV 89.6 (80.0-100.0) fL MCH 32.0 (25.0-35.0) pg MCHC 35.7 (31.0-37.0) g/dL RDW 13.6 (11.5-15.5) % Plt Count 222 (150-450) k/uL Neutrophils % 68 % Lymphocytes % 18 % Monocytes % 7 % Eosinophils % 3 % Basophils % 1 % Neutrophils # 3.9 (1.3-7.7) k/uL Lymphocytes # 1.0 (1.0-4.8) k/uL Monocytes # 0.4 (0-1.0) k/uL Eosinophils # 0.2 (0-0.7) k/uL Basophils # 0.0 (0-0.2) k/uL Sodium 138 (137-145) mmol/L Potassium 4.2 (3.5-5.1) mmol/L Chloride 104 (98-107) mmol/L Carbon Dioxide 26 (22-30) mmol/L Anion Gap 8 mmol/L BUN 17 (9-20) mg/dL Creatinine 1.12 (0.66-1.25) mg/dL Est GFR (MDRD) Af Amer >60 (>60 ml/min/1.73 sqM) Est GFR (MDRD) Non-Af >60 (>60 ml/min/1.73 sqM) Glucose 90 (74-99) mg/dL Plasma Lactic Acid [place] 0.8 (0.7-2.0) mmol/L Calcium 9.0 (8.4-10.2) mg/dL Total Bilirubin 0.7 (0.2-1.3) mg/dL AST 19 (17-59) U/L ALT 31 (21-72) U/L Alkaline Phosphatase 62 (38-126) U/L Total Protein 5.8 L (6.3-8.2) g/dL Albumin 3.2 L (3.5-5.0) g/dL TSH (0.465-4.680) mIU/L Free T4 (0.78-2.19) ng/dL Cortisol ug/dL Urine Color Urine Appearance (Clear) Urine pH (5.0-8.0) Ur Specific [place] (1.001-1.035) Urine Protein (Negative) Urine Glucose (UA) (Negative) Urine Ketones (Negative) Urine Blood (Negative) Urine Nitrite (Negative) Urine Bilirubin (Negative) Urine Urobilinogen (<2.0) mg/dL Ur Leukocyte Esterase (Negative) 11/05/16 11/05/16 Range/Units 10:30 12:20 WBC (3.8-10.6) k/uL RBC (4.30-5.90) m/uL Hgb (13.0-17.5) gm/dL Hct (39.0-53.0) % MCV (80.0-100.0) fL MCH (25.0-35.0) pg MCHC (31.0-37.0) g/dL RDW (11.5-15.5) % Plt Count (150-450) k/uL Neutrophils % % Lymphocytes % % Monocytes % % Eosinophils % % Basophils % % Neutrophils # (1.3-7.7) k/uL Lymphocytes # (1.0-4.8) k/uL Monocytes # (0-1.0) k/uL Eosinophils # (0-0.7) k/uL Basophils # (0-0.2) k/uL Sodium (137-145) mmol/L Potassium (3.5-5.1) mmol/L Chloride (98-107) mmol/L Carbon Dioxide (22-30) mmol/L Anion Gap mmol/L BUN (9-20) mg/dL Creatinine (0.66-1.25) mg/dL Est GFR (MDRD) Af Amer (>60 ml/min/1.73 sqM) Est GFR (MDRD) Non-Af (>60 ml/min/1.73 sqM) Glucose (74-99) mg/dL Plasma Lactic Acid [place] (0.7-2.0) mmol/L Calcium (8.4-10.2) mg/dL Total Bilirubin (0.2-1.3) mg/dL AST (17-59) U/L ALT (21-72) U/L Alkaline Phosphatase (38-126) U/L Total Protein (6.3-8.2) g/dL Albumin (3.5-5.0) g/dL TSH 0.062 L (0.465-4.680) mIU/L Free T4 0.88 (0.78-2.19) ng/dL Cortisol 9 ug/dL Urine Color Yellow Urine Appearance Clear (Clear) Urine pH 5.5 (5.0-8.0) Ur Specific [place] 1.015 (1.001-1.035) Urine Protein Negative (Negative) Urine Glucose (UA) Negative (Negative) Urine Ketones 2+ H (Negative) Urine Blood Negative (Negative) Urine Nitrite Negative (Negative) Urine Bilirubin Negative (Negative) Urine Urobilinogen <2.0 (<2.0) mg/dL Ur Leukocyte Esterase Negative (Negative) Disposition Clinical Impression: Hypothyroid, Dehydration, Chemotherapy adverse reaction, Pituitary failure Disposition: HOME SELF-CARE Additional Instructions: Dr. Souza tomorrow as scheduled. Return to the ED if he began feeling worse prior to your scheduled visit with Dr. Souza Referrals: Kwame Morton DO [Primary Care Provider] - 1-2 days
[2016-11-05 11:01] LABS: Basophils % (A) 1 %; CH 31.5; CHCM 35.3; Eosinophils # (A) 0.2 k/uL (0-0.7); Eosinophils % (A) 3 %; HCT 44.7 % (39.0-53.0); HDW 2.85; Luc # (Auto) 0.13; Luc % (Auto) 2; Lymphocytes % (A) 18 %; MCHC 35.7 g/dL (31.0-37.0); MCV 89.6 fL (80.0-100.0); Mean Platelet Volume 6.9; Monocytes # (A) 0.4 k/uL (0-1.0); Monocytes % (A) 7 %; Neutrophils # (A) 3.9 k/uL (1.3-7.7); Neutrophils % (A) 68 %; RBC 4.99 m/uL (4.30-5.90); RDW 13.6 % (11.5-15.5); WBC 5.7 k/uL (3.8-10.6); WBC (Perox) 5.57
[2016-11-05 11:15] LABS: ALT 31 U/L (21-72); AST 19 U/L (17-59); Alkaline Phosphatase 62 U/L (38-126); Anion Gap 8 mmol/L; Blood Urea Nitrogen 17 mg/dL (9-20); Carbon Dioxide 26 mmol/L (22-30); Chloride 104 mmol/L (98-107); Glucose 90 mg/dL (74-99); Non-African American GFR(MDRD) >60 (>60 ml/min/1.73 sqM); Potassium 4.2 mmol/L (3.5-5.1); Sodium 138 mmol/L (137-145); Total Bilirubin 0.7 mg/dL (0.2-1.3); Total Protein 5.8 g/dL (6.3-8.2)
[2016-11-05] MEDS ORDERED: ACETAMINOPHEN TAB 325 MG TAB PO STA (11:31)
[2016-11-05 12:27] LABS: Appearance,Urine Clear (Clear); Bilirubin,Urine Negative (Negative); Glucose,Urine (UA) Negative (Negative); Ketones,Urine 2+ (Negative); Leukocyte Esterase,Urine Negative (Negative); Nitrite,Urine Negative (Negative); PH, Urine 5.5 (5.0-8.0); Protein,Urine Negative (Negative); Specific Gravity,Urine 1.015 (1.001-1.035); UA Billing (MACRO vs. MICRO) CHEM; Urobilinogen,Urine <2.0 mg/dL (<2.0)
[2016-11-05] MEDS ORDERED: methylPREDNISolone SOD SUCCI 125 MG/2 ML VIAL IV STA (14:04)
[2016-11-05 14:55] VITALS: RESP 18
[2016-11-05 16:22] VITALS: BP 104/64; PULSE 87; TEMP 99.8
== END 2016-11-05 16:21 | disposition home or self-care (01) ==
LOC: EC 09:32
DX: E03.9 Hypothyroidism, unspecified (principal); E86.0 Dehydration; T45.1X5A Adverse effect of antineoplastic and immunosuppressive drugs, initial encounter; E23.6 Other disorders of pituitary gland; Z85.820 Personal history of malignant melanoma of skin; Z85.841 Personal history of malignant neoplasm of brain; Z79.899 Other long term (current) drug therapy
CPT/HCPCS: 99284; 96374; 96375; 96361; 36415; 84439; 80053; 84443; 82533; 83605; 85025; 81003; 87040; J2930; J2405

== ENCOUNTER 2016-11-26 10:26 | Emergency (ER) | payer OTHER ==
[2016-11-26] MEDS ORDERED: SODIUM CHLORIDE 0.9% 1,000 ML IV STA ×2 (10:51)
[2016-11-26] MEDS ORDERED: ONDANSETRON 4 MG/2 ML VIAL IVP STA (10:51)
--- NOTE | 2016-11-26 10:56 | ED ---
General Adult HPI - General Chief complaint: Recheck/Abnormal Lab/Rx Stated complaint: abnormal labs Time Seen by Provider: 11/26/16 10:45 Source: patient Mode of arrival: ambulatory Limitations: no limitations - History of Present Illness Initial comments: This 51-year-old white male presents with a complaint of nausea vomiting and diarrhea. This is been going on for approximately 2 days. He states that he will have occasional abdominal pain when he vomits but none currently. He has had multiple episodes of diarrhea. He denies any blood in his stool. His been unable to eat or drink anything today. He was able to eat and drink yesterday. He has occasional headache. He has had occasional shortness of breath and occasional epistaxis and cough. He has been undergoing treatment for melanoma which apparently is stage IV. He has this currently and his brain, lungs, and his left hand that he is aware of. His receiving chemotherapy through Dr. Trujillo at the [facility] in his last chemotherapy was on 11/12/2016. He denies any other complaints or modifying factors. - Related Data Home Medications Medication Instructions Recorded Confirmed Cetirizine HCl [Zyrtec] 10 mg PO DAILY 11/26/16 11/26/16 Ibuprofen [Motrin] 400 - 600 mg PO BID PRN 11/26/16 11/26/16 Levothyroxine Sodium [Synthroid] 75 mcg PO DAILY 11/26/16 11/26/16 Loratadine [Claritin] 10 mg PO DAILY 11/26/16 11/26/16 predniSONE 40 mg PO DAILY 11/26/16 11/26/16 Previous Rx's Medication Instructions Recorded Ondansetron [Zofran ODT] 8 mg PO Q8HR PRN #20 tab 11/26/16 Allergies Allergy/AdvReac Type Severity Reaction Status Date / Time No Known Allergies Allergy Verified 11/26/16 10:57 Review of Systems ROS Statement: Those systems with pertinent positive or pertinent negative responses have been documented in the HPI. ROS Other: All systems not noted in ROS Statement are negative. Past Medical History Past Medical History: Cancer Additional Past Medical History / Comment(s): melanoma 01/2014 mets to brain History of Any Multi-Drug Resistant Organisms: None Reported Past Surgical History: Tonsillectomy Additional Past Surgical History / Comment(s): Skin cancer removal left neck, wide excision[facility] Past Psychological History: No Psychological Hx Reported Smoking Status: Never smoker Past Alcohol Use History: None Reported Past Drug Use History: None Reported - Past Family History Father Family Medical History: Chest Pain / Angina, Congestive Heart Failure (CHF), CVA /TIA Additional Family Medical History / Comment(s): Mother Family Medical History: Congestive Heart Failure (CHF), Diabetes Mellitus Additional Family Medical History / Comment(s): General Exam - General Exam Comments Initial Comments: GENERAL: The patient is well nourished and well hydrated. VITAL SIGNS: Heart rate, blood pressure, respiratory rate reviewed as recorded in nurse's notes. EYES: Pupils are round and reactive. Extraocular movements are intact. No conjunctival / lid redness or swelling. ENT: No external evidence of injury, swelling, or ecchymosis. Airway is patent. Throat is clear. NECK: Nontender. No swelling or evidence of injury. No subcutaneous emphysema. Trachea is midline. No thyroid mass. HEART: Regular rate and rhythm. Good peripheral pulses. LUNGS/CHEST: Breath sounds clear and equal bilaterally. No rales, rhonchi, or wheezes. No ecchymosis, subcutaneous emphysema, or tenderness. ABDOMEN: Abdomen soft without tenderness. No palpable masses or organomegaly. No peritoneal signs. No abdominal wall swelling or ecchymosis. EXTREMITIES: No extremity tenderness. Normal muscle tone and function. No thoracolumbar tenderness. NEUROLOGIC: Sensation is grossly intact. Cranial nerve exam reveals face is symmetrical, tongue is midline, speech is clear. SKIN: No abrasions or ecchymosis is noted. There is a small lump on the palmar aspect of the mid left hand. PSYCHIATRIC: Alert and oriented. Appropriate behavior and judgment. Limitations: no limitations Course Vital Signs 11/26/16 11/26/16 10:29 13:54 Temperature 100.5 F H 97.5 F L Pulse Rate 108 H 79 Respiratory 20 17 Rate Blood Pressure 131/64 103/62 O2 Sat by Pulse 96 93 L Oximetry Medical Decision Making - Medical Decision Making The patient was seen and examined. All diagnostics were reviewed. An IV is started and he was hydrated received some antiemetics. He also had a chest x- ray which didn't show the pulmonary masses which are improved. The acute abdominal series portion did not show any acute abnormalities. The lipase is slightly elevated. The abdominal series portion of the x-rays were negative. He is feeling markedly improved on recheck. He received some Tylenol and his temperature came down. The case is discussed with his oncologist Dr. Trujillo at the [facility] and he would like the patient to receive 125 mg of Solu-Medrol here and then take 80 mg of prednisone in the morning. He is agreeable to Zofran prescription as well. The patient feels well and wants to be discharged home. His oncologist is agreeable with this plan as well and will call him tomorrow to recheck him. It is felt as though his nausea and vomiting certainly could be related to side effects of the chemotherapy. The exact cause of the mild fever is not definitively determined. Return parameters are discussed. - Lab Data Result diagrams: 11/26/16 10:00 11/26/16 10:00 Lab Results 11/26/16 11/26/16 11/26/16 Range/Units 10:00 10:00 12:32 WBC 8.1 (3.8-10.6) k/uL RBC 4.79 (4.30-5.90) m/uL Hgb 14.8 (13.0-17.5) gm/dL Hct 44.8 (39.0-53.0) % MCV 93.5 (80.0-100.0) fL MCH 30.9 (25.0-35.0) pg MCHC 33.0 (31.0-37.0) g/dL RDW 14.2 (11.5-15.5) % Plt Count 236 (150-450) k/uL Neutrophils % (Manual) 50.0 % Band Neutrophils % 30.5 % Lymphocytes % (Manual) 9.0 % Monocytes % (Manual) 9.0 % Eosinophils % (Manual) 1.0 % Myelocytes % 0.5 % Neutrophils # (Manual) 6.5 (1.3-7.7) k/uL Lymphocytes # (Manual) 0.7 L (1.0-4.8) k/uL Monocytes # (Manual) 0.7 (0-1.0) k/uL Eosinophils # (Manual) 0.1 (0-0.7) k/uL Nucleated RBCs 0 (0-0) /100 WBC Manual Slide Review Performed Sodium 138 (137-145) mmol/L Potassium 4.0 (3.5-5.1) mmol/L Chloride 103 (98-107) mmol/L Carbon Dioxide 25 (22-30) mmol/L Anion Gap 10 mmol/L BUN 16 (9-20) mg/dL Creatinine 1.00 (0.66-1.25) mg/dL Est GFR (MDRD) Af Amer >60 (>60 ml/min/1.73 sqM) Est GFR (MDRD) Non-Af >60 (>60 ml/min/1.73 sqM) Glucose 134 H (74-99) mg/dL Calcium 9.0 (8.4-10.2) mg/dL Total Bilirubin 0.5 (0.2-1.3) mg/dL AST 21 (17-59) U/L ALT 50 (21-72) U/L Alkaline Phosphatase 67 (38-126) U/L Total Protein 5.6 L (6.3-8.2) g/dL Albumin 3.3 L (3.5-5.0) g/dL Amylase 89 (30-110) U/L Lipase 545 H (23-300) U/L Urine Color Yellow Urine Appearance Clear (Clear) Urine pH 6.0 (5.0-8.0) Ur Specific [place] 1.013 (1.001-1.035) Urine Protein Negative (Negative) Urine Glucose (UA) Negative (Negative) Urine Ketones Negative (Negative) Urine Blood Negative (Negative) Urine Nitrite Negative (Negative) Urine Bilirubin Negative (Negative) Urine Urobilinogen <2.0 (<2.0) mg/dL Ur Leukocyte Esterase Negative (Negative) Disposition Clinical Impression: Nausea and vomiting, Metastatic melanoma, Pancreatitis, Chemotherapy induced nausea and vomiting, Pulmonary nodule, Dehydration Disposition: HOME SELF-CARE Condition: Good Instructions: Dehydration (ED), Acute Nausea and Vomiting (ED), Acute Diarrhea (ED), Pancreatitis (ED) Additional Instructions: Please avoid taking the Motrin until cleared by your doctor. You may safely take Tylenol if needed for pain or fever. Please take 80 mg of prednisone tomorrow morning. Prescriptions: Ondansetron [Zofran ODT] 8 mg PO Q8HR PRN #20 tab PRN Reason: Nausea Referrals: Kwame Morton DO [Primary Care Provider] - 1-2 days Time of Disposition: 14:37
[2016-11-26 11:09] LABS: CH 31.7; CHCM 34.1; HCT 44.8 % (39.0-53.0); HGB 14.8 gm/dL (13.0-17.5); Immature Gran Flag Marked; MCH 30.9 pg (25.0-35.0); MCV 93.5 fL (80.0-100.0); Mean Platelet Volume 7.3; RBC 4.79 m/uL (4.30-5.90); RDW 14.2 % (11.5-15.5); WBC 8.1 k/uL (3.8-10.6); WBC (Perox) 7.92
[2016-11-26] MEDS ORDERED: ACETAMINOPHEN TAB 500 MG TAB PO STA (11:23)
[2016-11-26 11:28] LABS: ALT 50 U/L (21-72); AST 21 U/L (17-59); Alkaline Phosphatase 67 U/L (38-126); Amylase 89 U/L (30-110); Anion Gap 10 mmol/L; Blood Urea Nitrogen 16 mg/dL (9-20); Carbon Dioxide 25 mmol/L (22-30); Chloride 103 mmol/L (98-107); Glucose 134 mg/dL (74-99); Non-African American GFR(MDRD) >60 (>60 ml/min/1.73 sqM); Sodium 138 mmol/L (137-145); Total Bilirubin 0.5 mg/dL (0.2-1.3); Total Protein 5.6 g/dL (6.3-8.2)
[2016-11-26 11:41] LABS: Add Differential Manual Differential
[2016-11-26 11:51] LABS: Band Neutrophils % 30.5 %; Myelocytes % 0.5 %; Nucleated Red Blood Cells 0 /100 WBC (0-0); Total Cells Counted 200
[2016-11-26 11:52] LABS: Manual Review Performed
--- NOTE | 2016-11-26 11:55 | XR ---
EXAMINATION TYPE: XR abdomen 2V DATE OF EXAM: 11/26/2016 CLINICAL HISTORY: Vomiting, diarrhea, and cough for 3 days. History of melanoma. TECHNIQUE: Supine and upright views of the abdomen are obtained. COMPARISON: None. FINDINGS: Scattered gas is seen in non-distended small bowel loops. Gas and fecal material is seen in non-distended colon. There is no visceromegaly, pneumoperitoneum, or abnormal calcification appr eciated. The lung bases are clear and the osseous structures are intact. Degenerative changes are ap preciated of the femoral acetabular joints are displayed as acetabular sclerosis and cephalad joint s pace narrowing. IMPRESSION: Nonobstructive bowel gas pattern.
--- NOTE | 2016-11-26 11:55 | XR ---
EXAMINATION TYPE: XR chest 2V DATE OF EXAM: 11/26/2016 COMPARISON: Prior chest x-ray is unavailable; prior chest CT 06/05/2016 for comparison as well as PET/ CT 07/18/2016 HISTORY: Melanoma and cough TECHNIQUE: Frontal and lateral views of the chest are obtained. FINDINGS: Surgical clips are present over the left neck. The previously identified lung nodules are not well seen. Patchy basilar atelectatic changes noted. There is no pneumothorax or pleural effusion . Cardiac mediastinal silhouette is within normal limits. IMPRESSION: Lung nodules are less conspicuous than on prior chest CT. Basilar atelectasis, correlate to exclude pneumonia.
[2016-11-26 12:45] LABS: Appearance,Urine Clear (Clear); Bilirubin,Urine Negative (Negative); Glucose,Urine (UA) Negative (Negative); Ketones,Urine Negative (Negative); Leukocyte Esterase,Urine Negative (Negative); Nitrite,Urine Negative (Negative); Protein,Urine Negative (Negative); Specific Gravity,Urine 1.013 (1.001-1.035); UA Billing (MACRO vs. MICRO) CHEM; Urobilinogen,Urine <2.0 mg/dL (<2.0)
[2016-11-26 13:59] VITALS: RESP 17
[2016-11-26] MEDS ORDERED: methylPREDNISolone SOD SUCCI 125 MG/2 ML VIAL IV STA (14:35)
[2016-11-26 14:48] VITALS: BP 91/51; PULSE 75; TEMP 97.6
== END 2016-11-26 14:48 | disposition home or self-care (01) ==
LOC: EC 10:26
DX: R11.2 Nausea with vomiting, unspecified (principal); T45.1X5A Adverse effect of antineoplastic and immunosuppressive drugs, initial encounter; K85.90 Acute pancreatitis without necrosis or infection, unspecified; E86.0 Dehydration; R91.1 Solitary pulmonary nodule; Z79.52 Long term (current) use of systemic steroids; Z85.820 Personal history of malignant melanoma of skin; Z85.841 Personal history of malignant neoplasm of brain; Z79.899 Other long term (current) drug therapy
CPT/HCPCS: 99283; 96374; 96375; 96361 ×4; 36415; 80053; 82150; 83690; 85025; 81003; 87040; 87086; 71020; 74020; J2930; J2405

== ENCOUNTER → 2016-11-30 | Outpatient (CLI) | payer OTHER ==
[2016-11-30 16:20] LABS: Amylase 36 U/L (30-110)
[2016-12-02 10:36] LABS: ALT 53 U/L (21-72); AST 20 U/L (17-59); Alkaline Phosphatase 59 U/L (38-126); Anion Gap 11 mmol/L; Blood Urea Nitrogen 23 mg/dL (9-20); Calcium 9.1 mg/dL (8.4-10.2); Carbon Dioxide 23 mmol/L (22-30); Chloride 104 mmol/L (98-107); Glucose 211 mg/dL (74-99); Non-African American GFR(MDRD) >60 (>60 ml/min/1.73 sqM); Potassium 4.1 mmol/L (3.5-5.1); Sodium 138 mmol/L (137-145); Total Bilirubin 0.3 mg/dL (0.2-1.3); Total Protein 5.7 g/dL (6.3-8.2)
== END | disposition home or self-care (01) ==
LOC: LABWHC1 15:44
PROVIDERS: ATTEND Internal Medicine
DX: K85.90 Acute pancreatitis without necrosis or infection, unspecified (principal)
CPT/HCPCS: 36415; 80053; 82150; 83690

== ENCOUNTER → 2016-12-03 | Outpatient (CLI) | payer OTHER | END | disposition home or self-care (01) | LOC: LABWHC1 12:28 | PROVIDERS: ATTEND Internal Medicine | DX: C79.9 Secondary malignant neoplasm of unspecified site (principal) | CPT/HCPCS: 87324 ==

== ENCOUNTER 2016-12-06 10:32 | Emergency (ER) | payer OTHER ==
[2016-12-06] MEDS ORDERED: ONDANSETRON 4 MG/2 ML VIAL IVP STA ×2 (10:42→13:39)
[2016-12-06] MEDS ORDERED: SODIUM CHLORIDE 0.9% 1,000 ML IV STA ×2 (10:42)
--- NOTE | 2016-12-06 10:44 | ED ---
General Adult HPI - General Chief complaint: Nausea/Vomiting/Diarrhea Stated complaint: vomiting Time Seen by Provider: 12/06/16 10:38 Source: patient, RN notes reviewed Mode of arrival: wheelchair Limitations: no limitations - History of Present Illness Initial comments: Patient 51-year-old male significant past medical history for melanoma, resents emergency room today with chief complaint of symptoms of nausea vomiting diarrhea. Patient does admit that he had chemotherapy last week. He states she 's had these symptoms since. Patient does admit to some mild discomfort to his abdomen with cramping in nature. Patient denies any signs of blood in the emesis or stool. He denies any other points her symptoms. Patient denies any recent fever, chills, shortness of breath, chest pain, back pain, numbness or tingling, dysuria or hematuria, constipation or diarrhea, headaches or visual changes, or any other complaints. - Related Data Home Medications Medication Instructions Recorded Confirmed Cetirizine HCl [Zyrtec] 10 mg PO DAILY 11/26/16 12/06/16 Ibuprofen [Motrin] 400 - 600 mg PO BID PRN 11/26/16 12/06/16 Levothyroxine Sodium [Synthroid] 75 mcg PO DAILY 11/26/16 12/06/16 Loratadine [Claritin] 10 mg PO DAILY 11/26/16 12/06/16 Prochlorperazine [Compazine] 10 mg PO BID PRN 12/06/16 12/06/16 predniSONE 100 mg PO DAILY 12/06/16 12/06/16 Previous Rx's Medication Instructions Recorded Ondansetron Odt [Zofran ODT] 4 mg PO Q8HR PRN #20 tab 12/06/16 Allergies Allergy/AdvReac Type Severity Reaction Status Date / Time No Known Allergies Allergy Verified 12/06/16 10:49 Review of Systems ROS Statement: Those systems with pertinent positive or pertinent negative responses have been documented in the HPI. ROS Other: All systems not noted in ROS Statement are negative. Past Medical History Past Medical History: Cancer Additional Past Medical History / Comment(s): melanoma 01/2014 mets to brain History of Any Multi-Drug Resistant Organisms: None Reported Past Surgical History: Tonsillectomy Additional Past Surgical History / Comment(s): Skin cancer removal left neck, wide excision, cyst removal 1982, from [facility] Past Psychological History: No Psychological Hx Reported Smoking Status: Never smoker Past Alcohol Use History: None Reported Past Drug Use History: None Reported - Past Family History Father Family Medical History: Chest Pain / Angina, Congestive Heart Failure (CHF), CVA /TIA Additional Family Medical History / Comment(s): Mother Family Medical History: Congestive Heart Failure (CHF), Diabetes Mellitus Additional Family Medical History / Comment(s): General Exam - General Exam Comments Initial Comments: General: The patient is awake and alert. Eye: Pupils are equal, round and reactive to light, extra-ocular movements are intact. No nystagmus. There is normal conjunctiva bilaterally. No signs of icterus. Ears, nose, mouth and throat: There are moist mucous membranes and no oral lesions. Neck: The neck is supple, there is no tenderness or JVD. Cardiovascular: There is a regular rate and rhythm. No murmur, rub or gallop is appreciated. Respiratory: Lungs are clear to auscultation, respirations are non-labored, breath sounds are equal. No wheezes, stridor, rales, or rhonchi. Gastrointestinal: Soft, non-distended, non-tender abdomen without masses or organomegaly noted. There is no rebound or guarding present. No CVA tenderness. Bowel sounds are unremarkable. Musculoskeletal: Normal ROM, no tenderness. Strength 5/5. Sensation intact. Pulses equal bilaterally 2+. Neurological: A&O x 3. CN II-XII intact, There are no obvious motor or sensory deficits. Coordination appears grossly intact. Speech is normal. Skin: Skin is warm and dry and no rashes or lesions are noted. Psychiatric: Cooperative, appropriate mood & affect, normal judgment. Limitations: no limitations Course Vital Signs 12/06/16 12/06/16 10:33 11:35 Temperature 98.8 F Pulse Rate 118 H 113 H Respiratory 20 18 Rate Blood Pressure 112/83 94/53 O2 Sat by Pulse 95 95 Oximetry Medical Decision Making - Medical Decision Making Case discussed in detail with attending physician Dr. Fernandez. Patient reexamined at this time shows no signs of distress resting comfortably. labs been reviewed shows a 13,000 white count. Patient currently on steroids. Has had nausea vomiting diarrhea. However soft nontender. patient's urinalysis reviewed shows 19 white cells. No nitrates. No leukocyte Estrace. Culture will be added. States he feels like he does not have to go. At this time patient does state that he feels comfortable going home. He states he does not want to be admitted to the hospital. States he does have nausea medication at home. He is advised to follow-up with his oncologist tomorrow. Advised return here to emergency room if any symptoms increase or worsen or for any other concerns. - Lab Data Result diagrams: 12/06/16 11:03 12/06/16 11:03 Lab Results 12/06/16 12/06/16 12/06/16 Range/Units 11:03 11:03 11:03 WBC 13.7 H (3.8-10.6) k/uL RBC 5.77 (4.30-5.90) m/uL Hgb 18.2 H D (13.0-17.5) gm/dL Hct 54.4 H (39.0-53.0) % MCV 94.2 (80.0-100.0) fL MCH 31.4 (25.0-35.0) pg MCHC 33.4 (31.0-37.0) g/dL RDW 13.9 (11.5-15.5) % Plt Count 235 (150-450) k/uL Neutrophils % 79 % Lymphocytes % 15 % Monocytes % 5 % Eosinophils % 1 % Basophils % 1 % Neutrophils # 10.7 H (1.3-7.7) k/uL Lymphocytes # 2.0 (1.0-4.8) k/uL Monocytes # 0.6 (0-1.0) k/uL Eosinophils # 0.1 (0-0.7) k/uL Basophils # 0.1 (0-0.2) k/uL PT 11.1 (9.0-12.0) sec INR 1.1 (<1.2) APTT 22.0 (22.0-30.0) sec Sodium 141 (137-145) mmol/L Potassium 3.8 (3.5-5.1) mmol/L Chloride 106 (98-107) mmol/L Carbon Dioxide 21 L (22-30) mmol/L Anion Gap 14 mmol/L BUN 23 H (9-20) mg/dL Creatinine 1.59 H (0.66-1.25) mg/dL Est GFR (MDRD) Af Amer 55 (>60 ml/min/1.73 sqM) Est GFR (MDRD) Non-Af 46 (>60 ml/min/1.73 sqM) Glucose 131 H (74-99) mg/dL Calcium 9.5 (8.4-10.2) mg/dL Total Bilirubin 0.8 (0.2-1.3) mg/dL AST 18 (17-59) U/L ALT 46 (21-72) U/L Alkaline Phosphatase 72 (38-126) U/L Total Protein 6.6 (6.3-8.2) g/dL Albumin 3.9 (3.5-5.0) g/dL Lipase 135 (23-300) U/L Urine Color Urine Appearance (Clear) Urine pH (5.0-8.0) Ur Specific [place] (1.001-1.035) Urine Protein (Negative) Urine Glucose (UA) (Negative) Urine Ketones (Negative) Urine Blood (Negative) Urine Nitrite (Negative) Urine Bilirubin (Negative) Urine Urobilinogen (<2.0) mg/dL Ur Leukocyte Esterase (Negative) Urine RBC (0-5) /hpf Urine WBC (0-5) /hpf Ur Squamous Epith Cells (0-4) /hpf Amorphous Sediment (None) /hpf Hyaline Casts (0-2) /lpf Urine Mucus (None) /hpf 12/06/ Range/Units 14:30 WBC (3.8-10.6) k/uL RBC (4.30-5.90) m/uL Hgb (13.0-17.5) gm/dL Hct (39.0-53.0) % MCV (80.0-100.0) fL MCH (25.0-35.0) pg MCHC (31.0-37.0) g/dL RDW (11.5-15.5) % Plt Count (150-450) k/uL Neutrophils % % Lymphocytes % % Monocytes % % Eosinophils % % Basophils % % Neutrophils # (1.3-7.7) k/uL Lymphocytes # (1.0-4.8) k/uL Monocytes # (0-1.0) k/uL Eosinophils # (0-0.7) k/uL Basophils # (0-0.2) k/uL PT (9.0-12.0) sec INR (<1.2) APTT (22.0-30.0) sec Sodium (137-145) mmol/L Potassium (3.5-5.1) mmol/L Chloride (98-107) mmol/L Carbon Dioxide (22-30) mmol/L Anion Gap mmol/L BUN (9-20) mg/dL Creatinine (0.66-1.25) mg/dL Est GFR (MDRD) Af Amer (>60 ml/min/1.73 sqM) Est GFR (MDRD) Non-Af (>60 ml/min/1.73 sqM) Glucose (74-99) mg/dL Calcium (8.4-10.2) mg/dL Total Bilirubin (0.2-1.3) mg/dL AST (17-59) U/L ALT (21-72) U/L Alkaline Phosphatase (38-126) U/L Total Protein (6.3-8.2) g/dL Albumin (3.5-5.0) g/dL Lipase (23-300) U/L Urine Color Yellow Urine Appearance Cloudy (Clear) Urine pH 5.0 (5.0-8.0) Ur Specific [place] 1.014 (1.001-1.035) Urine Protein 1+ H (Negative) Urine Glucose (UA) Negative (Negative) Urine Ketones Negative (Negative) Urine Blood Negative (Negative) Urine Nitrite Negative (Negative) Urine Bilirubin Negative (Negative) Urine Urobilinogen <2.0 (<2.0) mg/dL Ur Leukocyte Esterase Negative (Negative) Urine RBC 2 (0-5) /hpf Urine WBC 19 H (0-5) /hpf Ur Squamous Epith Cells <1 (0-4) /hpf Amorphous Sediment Few H (None) /hpf Hyaline Casts 137 H (0-2) /lpf Urine Mucus Many H (None) /hpf Disposition Clinical Impression: Nausea vomiting and diarrhea Disposition: HOME SELF-CARE Condition: Stable Instructions: Acute Nausea and Vomiting (ED) Additional Instructions: Please continue nausea medication at home and increasing oral fluids. Please follow-up with oncologist/family doctor in the next 2 days of symptoms have not improved. Please return to emergency room if the symptoms increase or worsen or for any other concerns. Prescriptions: Ondansetron Odt [Zofran ODT] 4 mg PO Q8HR PRN #20 tab PRN Reason: Nausea Referrals: Kwame Morton DO [Primary Care Provider] - 1-2 days Time of Disposition: 14:26
[2016-12-06 11:29] LABS: Calcium 9.5 mg/dL (8.4-10.2); Potassium 3.8 mmol/L (3.5-5.1); Total Bilirubin 0.8 mg/dL (0.2-1.3); Total Protein 6.6 g/dL (6.3-8.2)
[2016-12-06 11:34] LABS: Basophils # (A) 0.1 k/uL (0-0.2); Basophils % (A) 1 %; CH 31.4; CHCM 33.5; Eosinophils # (A) 0.1 k/uL (0-0.7); Eosinophils % (A) 1 %; HCT 54.4 % (39.0-53.0); HDW 2.89; Luc # (Auto) 0.17; Luc % (Auto) 1; Lymphocytes % (A) 15 %; MCH 31.4 pg (25.0-35.0); MCHC 33.4 g/dL (31.0-37.0); MCV 94.2 fL (80.0-100.0); Mean Platelet Volume 7.3; Monocytes # (A) 0.6 k/uL (0-1.0); Monocytes % (A) 5 %; Neutrophils # (A) 10.7 k/uL (1.3-7.7); Neutrophils % (A) 79 %; RBC 5.77 m/uL (4.30-5.90); RDW 13.9 % (11.5-15.5); WBC 13.7 k/uL (3.8-10.6)
[2016-12-06 11:38] LABS: HGB 18.2 gm/dL (13.0-17.5)
[2016-12-06 11:42] VITALS: RESP 18
[2016-12-06 11:45] LABS: INR 1.1 (<1.2); Prothrombin Time 11.1 sec (9.0-12.0)
[2016-12-06] MEDS ORDERED: SODIUM CHLORIDE 0.9% 500 ML IV STA (12:41)
[2016-12-06 14:58] LABS: Amorphous Sediment,Urine Few /hpf; Appearance,Urine Cloudy (Clear); Bilirubin,Urine Negative (Negative); Glucose,Urine (UA) Negative (Negative); Ketones,Urine Negative (Negative); Leukocyte Esterase,Urine Negative (Negative); Mucus,Urine Many /hpf; Nitrite,Urine Negative (Negative); Particle Count 16070; Protein,Urine 1+ (Negative); RBC,Urine 2 /hpf (0-5); Specific Gravity,Urine 1.014 (1.001-1.035); Squamous Epithelial Cell,Urine <1 /hpf (0-4); UA Billing (MACRO vs. MICRO) MICRO; Urobilinogen,Urine <2.0 mg/dL (<2.0); WBC,Urine 19 /hpf (0-5)
[2016-12-06 15:21] VITALS: BP 91/51; PULSE 110; TEMP 99.2
== END 2016-12-06 15:28 | disposition home or self-care (01) ==
LOC: EC 10:32
DX: R11.2 Nausea with vomiting, unspecified (principal); R19.7 Diarrhea, unspecified; R10.9 Unspecified abdominal pain; C79.31 Secondary malignant neoplasm of brain; Z79.52 Long term (current) use of systemic steroids; Z92.21 Personal history of antineoplastic chemotherapy; Z85.820 Personal history of malignant melanoma of skin; Z98.890 Other specified postprocedural states
CPT/HCPCS: 99284; 96374; 96376; 96361 ×3; 36415; 80053; 83690; 85025; 85610; 85730; 81001; 87086; J2405

== ENCOUNTER → 2017-06-14 | Outpatient (CLI) | payer OTHER ==
[2017-06-14 07:35] LABS: Amylase 45 U/L (30-110); Lipase 431 U/L (23-300)
== END | disposition home or self-care (01) ==
LOC: LABWHC1 06:34
PROVIDERS: ATTEND Internal Medicine
DX: C79.9 Secondary malignant neoplasm of unspecified site (principal)
CPT/HCPCS: 36415; 82150; 83690

== ENCOUNTER → 2018-04-13 | Outpatient (CLI) | payer OTHER ==
[2018-04-13 11:29] LABS: Albumin 4.4 g/dL (3.80-4.90); Albumin/Globulin Ratio 2.59 (1.20-2.10); Anion Gap 7.1 mmol/L (4.00-12.00); Calcium 9.4 mg/dL (8.7-10.3); Carbon Dioxide 28.9 mmol/L (21.6-31.8); Globulin 1.7 g/dL (2.1-3.7); LDL Cholesterol,Calculated 88.6 mg/dL (0.0-131.0); Total Bilirubin 0.4 mg/dL (0.3-1.2); Total Protein 6.1 g/dL (6.2-8.2); VLDL Calculation 18.4 mg/dL (5.00-40.00)
[2018-04-13 11:38] LABS: T4, Free (Free Thyroxine) 1.3 ng/dL (0.80-1.80)
[2018-04-13 11:51] LABS: C-Peptide <0.05 ng/mL (0.81-3.85)
[2018-04-13 17:30] LABS: ACTH <5.00 pg/mL (0.00-45.99)
== END | disposition home or self-care (01) ==
LOC: LABWHC1 06:33
PROVIDERS: ATTEND Internal Medicine
DX: E11.65 Type 2 diabetes mellitus with hyperglycemia (principal); E23.0 Hypopituitarism; E27.40 Unspecified adrenocortical insufficiency; E03.9 Hypothyroidism, unspecified
CPT/HCPCS: 36415; 80053; 80061; 82024; 82043; 82533; 82570; 83001; 83002; 83036; 84146; 84305; 84402; 84403; 84439; 84443; 84681

== ENCOUNTER → 2018-10-12 | Outpatient (CLI) | payer OTHER ==
[2018-10-12 16:46] LABS: LDL Cholesterol,Calculated 91.8 mg/dL (0.0-131.0); VLDL Calculation 12.2 mg/dL (5.00-40.00)
[2018-10-12 21:01] LABS: Hemoglobin A1C 8.7 % (4.0-6.0)
== END | disposition home or self-care (01) ==
LOC: LABWHC1 07:57
PROVIDERS: ATTEND Internal Medicine
DX: E10.65 Type 1 diabetes mellitus with hyperglycemia (principal); E27.40 Unspecified adrenocortical insufficiency; E55.9 Vitamin D deficiency, unspecified
CPT/HCPCS: 36415; 80061; 82043; 82306; 82570; 83036; 84402; 84403; 84439; 84443

== ENCOUNTER → 2021-08-08 | Outpatient (CLI) | payer OTHER ==
[~2021-08-08] MED LIST: SODIUM CHLORIDE 0.9% 500 ML 500 ML in EMPTY BAG 1 BAG IV PRN; SODIUM PHOSPHATE 10 MMOL in SODIUM CHLORIDE 0.9% 250 ML IVPB NR
[2021-08-08 09:49] VITALS: RESP 16; TEMP 97.5
[2021-08-08 12:35] VITALS: BP 116/72; PULSE 68
== END ==
LOC: PROCWHC3 08:57
PROVIDERS: ATTEND Nurse Practitioner Family
DX: E83.39 Other disorders of phosphorus metabolism (principal)
CPT/HCPCS: 36415; 84100; 96365; 96366